=== PATIENT | male | born 1970 | race Two or more races ===

== ENCOUNTER 2016-12-26 07:07 | Emergency (ER) | payer MEDICAID ==
[~2016-12-26 07:07] MED LIST: ELA10 PO; INSULIN SQ; LAC PO; LEVAQUIN750 MG PO; LEVEMIR100 U/M1 SC; NOR10T PO; NOVI SQ; PEP20 PO; ZES10 PO
[2016-12-26 08:02] LABS: microscopic required? NO
[2016-12-26 08:13] LABS: BASOPHIL % 0.2 % (0-2); PLATELET COUNT 194 x10^3mcL (130-400); RED CELL DISTRIBUTION WIDTH 11.9 % (11.5-14.5)
[2016-12-26 08:15] LABS: urine erythrocyte NEGATIVE (NEGATIVE)
[2016-12-26 08:19] LABS: CALCIUM 8.8 mg/dL (8.5-10.1); CARBON DIOXIDE 25.7 mmol/L (21-32); CHLORIDE SERUM 99 mmol/L (98-107); CREATININE SERUM 0.9 mg/dL (0.7-1.3); GFR1 > 60 mL/min; GLUCOSE SERUM 328 mg/dL (74-106); SODIUM SERUM 139 mmol/L (136-145)
[2016-12-26 08:22] LABS: ALBUMIN 4.3 g/dL (3.4-5.0); ALKALINE PHOSPHATASE 120 U/L (46-116); ALT/SGPT 31 U/L (16-63); AST/SGOT 19 U/L (15-37); BILIRUBIN TOTAL 1.1 mg/dL (0.20-1.00); LIPASE 80 IU/L (73-393); MAGNESIUM 2.2 mg/dL (1.8-2.4); TOTAL PROTEIN, SERUM 7.4 g/dL (6.4-8.2)
[2016-12-26 10:40] VITALS: BP 130/80
== END 2016-12-26 10:40 | disposition home or self-care (01) ==
LOC: ED 07:07
PROVIDERS: Emergency Medicine
DX: K29.70 Gastritis, unspecified, without bleeding (principal); R11.2 Nausea with vomiting, unspecified; R53.1 Weakness; E11.65 Type 2 diabetes mellitus with hyperglycemia; E78.5 Hyperlipidemia, unspecified; Z79.4 Long term (current) use of insulin
CPT/HCPCS: 82962; 83880; J1815; J2270; J2405; J3490; J7030; Q0092

== ENCOUNTER 2017-02-22 13:38 | Emergency (ER) | payer MEDICAID ==
[~2017-02-22] VITALS: Ht 167.6 cm; Wt 65.8 kg
[2017-02-22 14:26] LABS: CARBON DIOXIDE 32.2 mmol/L (21-32); CHLORIDE SERUM 97 mmol/L (98-107); CREATININE SERUM 0.9 mg/dL (0.7-1.3); GFR1 > 60 mL/min; GLUCOSE SERUM 199 mg/dL (74-106); SODIUM SERUM 134 mmol/L (136-145)
[2017-02-22 14:32] LABS: ALKALINE PHOSPHATASE 93 U/L (46-116); ALT/SGPT 20 U/L (16-63); AMYLASE 28 U/L (25-115); AST/SGOT 10 U/L (15-37); BILIRUBIN TOTAL 1.2 mg/dL (0.20-1.00); LIPASE 129 IU/L (73-393)
[2017-02-22 14:45] LABS: BASOPHIL % 0.3 % (0-2); PLATELET COUNT 248 x10^3mcL (130-400); RED CELL DISTRIBUTION WIDTH 13.6 % (11.5-14.5)
[2017-02-22 15:53] VITALS: BP 125/77
== END 2017-02-22 15:53 | disposition home or self-care (01) ==
LOC: ED 13:38
PROVIDERS: Emergency Medicine
DX: R10.13 Epigastric pain (principal); E11.9 Type 2 diabetes mellitus without complications; Z79.4 Long term (current) use of insulin
CPT/HCPCS: 83880; J2765; J7030

== ENCOUNTER 2017-03-05 09:07 | Inpatient (IN) | payer MEDICAID ==
[~2017-03-05] VITALS: Ht 170.2 cm; Wt 65.0 kg
--- NOTE | 2017-03-05 09:29 | NUR ---
PT C/O EPIGASTRIC PAIN AND VOMITING X 4-6 WKS. PT IS AAOX4, RESP EVEN AND UNLABORED, RA. DENIES SOB, CEHST PAIN, GI BLEED, DIARRHEA, OR UTI SYMPTOMS. PT GRIMACES WITBN PALPATION TO EPIGASTRIC AREA. PT REPORTS EXPERIENCING SIMILAR SYMPTOMS IN PAST.
--- NOTE | 2017-03-05 09:31 | NUR ---
DR BOSCH AT BEDSIDE FOR MSE
--- NOTE | 2017-03-05 09:40 | NUR ---
LAB AT BEDSIDE FOR MSE
[2017-03-05 09:48] LABS: microscopic required? NO
--- NOTE | 2017-03-05 09:48 | NUR ---
RADIOLOGY AT BEDSIDE FOR PCXR
--- NOTE | 2017-03-05 09:55 | NUR ---
EMT AT BEDSIDE FOR EKG
[2017-03-05 09:56] LABS: BASOPHIL % 0.3 % (0-2); PLATELET COUNT 196 x10^3mcL (130-400); RED CELL DISTRIBUTION WIDTH 12.9 % (11.5-14.5)
[2017-03-05 10:09] LABS: CALCIUM 8.8 mg/dL (8.5-10.1); CARBON DIOXIDE 28.2 mmol/L (21-32); CHLORIDE SERUM 94 mmol/L (98-107); GFR1 > 60 mL/min; GLUCOSE SERUM 356 mg/dL (74-106); POTASSIUM SERUM 4.2 mmol/L (3.5-5.1); SODIUM SERUM 130 mmol/L (136-145)
[2017-03-05 10:15] LABS: urine erythrocyte NEGATIVE (NEGATIVE)
[2017-03-05 10:15] LABS: ALBUMIN 3.9 g/dL (3.4-5.0); ALKALINE PHOSPHATASE 82 U/L (46-116); ALT/SGPT 22 U/L (16-63); AST/SGOT 12 U/L (15-37); BILIRUBIN TOTAL 2.3 mg/dL (0.20-1.00); CHOLESTEROL 183 mg/dL (<200); LIPASE 117 IU/L (73-393); TRIGLYCERIDES 89 mg/dL (<150)
[2017-03-05 10:18] LABS: CHOLESTEROL/HDL RATIO 2.3; HDL CHOLESTEROL 78 mg/dL (40-60)
[2017-03-05 10:23] LABS: T3 TOTAL 0.69 ng/mL
[2017-03-05 10:35] LABS: AMPHETAMINE QUAL UR NONE DETECTED (NEG <=1000)
--- NOTE | 2017-03-05 10:36 | NUR ---
PT REPORTS INCREASED PAIN AND NO RELIEF FROM GI COCKTAIL. VS STABLE. RESP EVEN AND UNLABORED, RA. DR BOSCH MADE AWARE OF PT PAIN
[2017-03-05 10:57] LABS: FREE THYROXINE INDEX 4.2 ug/dL (1.4-4.5); T4(THYROXINE) 10.2 ug/dL (4.7-13.3)
--- NOTE | 2017-03-05 11:00 | NUR ---
PT STS THAT HE WILL HAVE A RIDE HOME. DR BOSCH MADE AWARE
[2017-03-05 11:02] LABS: FREE T4 1.38 ng/dL (0.76-1.46)
--- NOTE | 2017-03-05 11:05 | NUR ---
[facility]
--- NOTE | 2017-03-05 11:41 | NUR ---
PT IN STABLE CONDITION. PT REPORTS BEING CONSTIPATED SINCE 03/01/17. DR BOSCH MADE AWARE
--- NOTE | 2017-03-05 12:24 | NUR ---
PT IN STABLE CONDITION WITH STABLE VS. PT REPORTS DECREASE IN PAIN NOW 01/10
--- NOTE | 2017-03-05 12:28 | NUR ---
DR BOSCH AT BEDSIDE DISCUSSING ADMISSION, PT AGREEABLE TO POC
--- NOTE | 2017-03-05 13:01 | NUR ---
LAB AT BEDSIDE FOR BLOOD DRAW
--- NOTE | 2017-03-05 13:08 | NUR ---
CALLED TO GIVE REPORT, JOSEP REED REQUESTING 10MIN TO CALL BACK. PT ALSO AWAITING VERBAL OK FROM DR BOSCH TO MOVE TO [facility]
[2017-03-05 13:22] LABS: MAGNESIUM 2.1 mg/dL (1.8-2.4); PHOSPHOROUS 4.4 mg/dL (2.5-4.9)
--- NOTE | 2017-03-05 13:35 | NUR ---
BEDSIDE REPORT GIVEN TO JOSEP.
[2017-03-05 13:56] VITALS: BP 136/85
--- NOTE | 2017-03-05 14:01 | NUR ---
[facility] ORIENTED PT TO ROOM AND SURROUNDINGS. IV NOTED TO LAC PATENT AND INTACT. TELE 27 PLACED ON PT READING NSR. INSTRUCTED PT ON THE USE OF CALL LIGHT FOR ASSISTANCE. ENDOSRED PT TO PRIMARY NURSE JOSEP
[2017-03-05 17:05] VITALS: BP 163/90
--- NOTE | 2017-03-05 18:53 | NUR ---
PT RESTING IN BED NO SIGNS OF DISTRESS, CALL LIGHT IN REACH. PT COUGHING DENIES SOB.
--- NOTE | 2017-03-05 19:10 | NUR ---
AAOX4. MARTINIQUAIS SPEAKING. TELE #27, NSR. LUNG SOUNDS CLEAR AND UNLABORED, ON RA. RADIAL AND PEDAL PULSES PALPABLE, NO EDEMA. BOWEL SOUNDS ACTIVE X 4 QUADRANTS, C/O EPIGASTRIC PAIN 9/10 BUT DOES NOT WANT MEDICATION AT THIS TIME. VOIDS WITHOUT DIFFICULTY. HEALED WOUNDS/SCAR TISSUE TO BLE. NS INFUSING @ 100 TO LEFT AC, NO REDNESS OR SWELLING. BED IN LOW POSITION, CALL LIGHT IN REACH. INSTRUCTED TO CALL FOR ASSISTANCE.
[2017-03-05 21:36] VITALS: BP 122/81
--- NOTE | 2017-03-06 00:34 | NUR ---
RESTING IN BED WITH EYES CLOSED, AWAKENS EASILY TO VERBAL STIMULI. BREATHING EVEN AND UNLABORED. NO ACUTE DISTRESS NOTED. NPO SINCE MIDNIGHT FOR ABD US THIS MORNING. WILL CONTINUE TO MONITOR.
[2017-03-06 05:16] VITALS: BP 133/95
--- NOTE | 2017-03-06 06:08 | NUR ---
AAOX4. CURRENTLY UNDERGOING BEDSIDE ABD US. NO ACUTE DISTRESS NOTED. NO ACUTE CHANGES DURING SHIFT. WILL ENDORSE TO ONCOMING RN.
[2017-03-06 07:20] LABS: BASOPHIL % 0.5 % (0-2); PLATELET COUNT 164 x10^3mcL (130-400); RED CELL DISTRIBUTION WIDTH 13.5 % (11.5-14.5)
--- NOTE | 2017-03-06 07:30 | NUR ---
RECEIVED THE PATIENT AWAKE AND ORIENTED TO PERSON, PLACE AND TIME. DENIED NAUSEA/VOMITING AT THIS TIME. PATIENT STATED HAVING EPISODES OF ABD. PAIN; THE PAIN WAS TOLERABLE AT THIS TIME. CONTINUE TO MONITOR AND MEDICATE FOR PAIN PRN. IVF NS VIA H/L TO LAC. TELE # 27 READS SINUS RHYTHMS. CALL LIGHT WITHIN REACH. SIDE RAILS UP X2.
[2017-03-06 07:36] LABS: CALCIUM 8.4 mg/dL (8.5-10.1); CARBON DIOXIDE 24.5 mmol/L (21-32); CHLORIDE SERUM 96 mmol/L (98-107); CREATININE SERUM 0.8 mg/dL (0.7-1.3); GFR1 > 60 mL/min; GLUCOSE SERUM 188 mg/dL (74-106); MAGNESIUM 2.2 mg/dL (1.8-2.4); PHOSPHOROUS 4.2 mg/dL (2.5-4.9); POTASSIUM SERUM 3.7 mmol/L (3.5-5.1); SODIUM SERUM 132 mmol/L (136-145)
--- NOTE | 2017-03-06 08:25 | NUR ---
DR. HENDERSON AND THE TEAM WERE MAKING ROUND TO SEE THE PATIENT. THE CARE PLAN WAS EXPLAINED TO THE PATIENT IN [facility] VIA ONE OF THE RESIDENT SPECIAL EDUCATION [employer] TEACHER.
--- NOTE | 2017-03-06 08:45 | NUR ---
DR. FREEMAN-RESIDENT WAS INFORMED THAT PER PHARMICIST, ERYC SHOULD BE ADMINISTERED WITH FOOD. DR. FREEMAN SAID, "IT IS OK TO GIVE IT TO THE PATIENT WITHOUT OUT FOOD."
[2017-03-06 09:53] VITALS: BP 153/97
[2017-03-06 13:44] VITALS: BP 132/83
--- NOTE | 2017-03-06 15:43 | NUR ---
THE URINE SAMPLE WAS COLLECTED AND SENT TO THE LAB FOR URINE LYTE AND OSMOLALITY PER DR. WESTFALL'S ORDER.
[2017-03-06 18:14] VITALS: BP 157/107
[2017-03-06 18:33] VITALS: BP 156/98
--- NOTE | 2017-03-06 18:37 | NUR ---
DR. CANNON IN TO SEE THE PATIENT.
--- NOTE | 2017-03-06 19:19 | NUR ---
DR. FREEMAN-RESIDENT ORDERED GI COCKTAIL FOR ABD. PAIN; THE MED WAS ADMISTERED TO THE PATIENT. WILL ENDORSE TO RELIEF NOCS TO F/U AND REASSESS THE PAIN.
--- NOTE | 2017-03-06 19:27 | NUR ---
SHIFT REASSESSMENT DONE.PATIENT ALERT AND ORIENTED.MAKE NEEDS KNOWN.JUST HAD GI COCKTAIL.D5NS AT 100 CC/ HOUR,NEW BAG,NEW ORDER.TELE 27 SR.NPO,HAS HEALED WOUNDS BLE.SCD ORDERED.CALL LIGHT IN REACH.
[2017-03-06 20:49] VITALS: BP 129/82
--- NOTE | 2017-03-06 21:09 | NUR ---
PM MEDS GIVEN,SWALLOWS WELL.SICK TO HIS STOMACH,CAME IN WITH ABD PROBLEM,GIVEN ZOFRAN IVP,ALSO PEPTOBISMOL.IVF D5 NS AT 100 CC/ HOUR.
[2017-03-07] VITALS (7 sets, daily range): BP systolic 127–158; BP diastolic 83–106; Ht 170.2 cm; Wt 65.0 kg
--- NOTE | 2017-03-07 05:54 | NUR ---
PATIENT SLEEPING ON AND OFF AT NIGHT.VOIDING WELL IN RESTROOM.IVF ORDERED.IV SITE L AC INTACT.WILL ENDORSE TO NEXT SHIFT.CALL LITE IN REACH.
[2017-03-07 06:09] LABS: BASOPHIL % 0.7 % (0-2); PLATELET COUNT 168 x10^3mcL (130-400); RED CELL DISTRIBUTION WIDTH 13.1 % (11.5-14.5)
[2017-03-07 06:23] LABS: CALCIUM 8.1 mg/dL (8.5-10.1); CHLORIDE SERUM 98 mmol/L (98-107); CREATININE SERUM 0.7 mg/dL (0.7-1.3); GFR1 > 60 mL/min; GLUCOSE SERUM 220 mg/dL (74-106); MAGNESIUM 2.1 mg/dL (1.8-2.4); PHOSPHOROUS 4.4 mg/dL (2.5-4.9); POTASSIUM SERUM 3.5 mmol/L (3.5-5.1); SODIUM SERUM 132 mmol/L (136-145)
--- NOTE | 2017-03-07 07:30 | NUR ---
RECEIVED PT. IN BED A/A/O X3. NO SOB, NO N/V NOTED. DENIES ANY PAIN AT THIS TIME. D5NS RUNNING AT 100 CC/HR. VIA IV H/L AT L AC. SCD TO BLE MAINTAINED. BED IN LOW POS., CALL LIGHT WITHIN REACH. SIDE RAILS UP X3.
--- NOTE | 2017-03-07 09:21 | NUR ---
DR. SLAUGHTER, THE RESIDENTS, CHARGE NURSE, AND ATTENDING NURSE AT BEDSIDE. CAREPLAN DISCUSSED WITH PT. ALL QUESTIONS ANSWERED.
--- NOTE | 2017-03-07 16:41 | NUR ---
REMAINS IN STABLE CONDITION AT THIS TIME. NO ACUTE DISTRESS NOTED.
--- NOTE | 2017-03-07 19:30 | NUR ---
RECEIVED PT IN BED AWAKE, ALERT,ORIENTED X4. NO SOB ON RA. BOWEL SOUNDS ACTIVE. PT HAS NO C/O PAIN AT THIS TIME. NO C/O N/V. W/ IVF NS AT 100 CC/HR INFUSING VIA LTAC. CALL LIGHT W/IN REACH.
--- NOTE | 2017-03-08 01:37 | NUR ---
PT SLEEPING COMFORTABLY AT THIS TIME, NO SIGNS OF DISTRESS
[2017-03-08 05:10] VITALS: BP 155/92
--- NOTE | 2017-03-08 05:29 | NUR ---
PT SLEPT FAIRLY. HE WAS MEDICATED FOR PAIN X2 W/ MINIMAL TO MOD. RELIEF. HE VOIDED FREELY W/O DIFFICULTY. IVF NS AT 100 CC/HR INFUSING WELL VIA RTAC.
--- NOTE | 2017-03-08 06:17 | NUR ---
PT C/O ABDL PAIN 02/09. NORCO 5/325 MG PO GIVEN.
[2017-03-08 06:46] LABS: PLATELET COUNT 155 x10^3mcL (130-400); RED CELL DISTRIBUTION WIDTH 13.4 % (11.5-14.5)
[2017-03-08 06:57] LABS: CALCIUM 8.2 mg/dL (8.5-10.1); CARBON DIOXIDE 25.3 mmol/L (21-32); CHLORIDE SERUM 96 mmol/L (98-107); CREATININE SERUM 0.7 mg/dL (0.7-1.3); GFR1 > 60 mL/min; GLUCOSE SERUM 268 mg/dL (74-106); MAGNESIUM 2.1 mg/dL (1.8-2.4); POTASSIUM SERUM 3.6 mmol/L (3.5-5.1); SODIUM SERUM 131 mmol/L (136-145)
--- NOTE | 2017-03-08 07:00 | NUR ---
PT VERBALIZED MINIMAL RELIEF OF PAIN FROM NORCO. WILL ENDORSE TO AM NURSE.
--- NOTE | 2017-03-08 07:15 | NUR ---
PT APPEARS TO BE SLEEPING MORE COMFORTABLY AFTER TAKING NORCO.
--- NOTE | 2017-03-08 07:15 | NUR ---
RECEIVED PT. IN BED A/A/O X3. NO SOB, NO N/V NOTED. PT. STILL C/O ON AND OFF PAIN TO HIS ABDOMEN. D5NS RUNNING AT 100 CC/HR. VIA IV H/L AT L AC. SCD TO BLE MAINTAINED. BED IN LOW POS., CALL LIGHT WITHIN REACH. SIDE RAILS UP X3.
[2017-03-08 07:55] VITALS: BP 123/88
[2017-03-08 09:44] LABS: BAND NEUTROPHIL 0 % (0-10); BASOPHIL 0 % (0-2); MONOCYTE 10 % (0-7); PLATELET MORPHOLOGY PLATELETS NORMAL; SEGMENTED NEUTROPHILS 64 % (37-75)
--- NOTE | 2017-03-08 10:12 | NUR ---
DR. SLAUGHTER, THE RESIDENTS, CHARGE NURSE, AND ATTENDING NURSE AT BEDSIDE. CAREPLAN DISCUSSED WITH PT. ALL QUESTIONS ANSWERED.
[2017-03-08 13:00] VITALS: BP 189/111
--- NOTE | 2017-03-08 13:30 | NUR ---
B/P= 181/109. NTG 0.4MG SL GIVEN. DR. KAUR WAS NOTIFIED OF THE ABOVE B/P. NO FURTHER ORDER RECEIVED FROM DR. KAUR.
[2017-03-08 14:08] VITALS: BP 120/75
--- NOTE | 2017-03-08 14:08 | NUR ---
B/P RECHECKED; B/P= 120/75, P= 84.
[2017-03-08 16:45] VITALS: BP 134/94
--- NOTE | 2017-03-08 18:04 | NUR ---
REMAINS IN STABLE CONDITION AT THIS TIME. NO ACUTE DISTRESS NOTED. DR. KAUR WAS MADE AWARE THAT PT. REQUESTED FOR PAIN MEDICATION EVERY 2 TO 3 HOURS AND THAT PT. IS ONLY ON TORADOL 30MG IV Q 8 HRS. PRN. NO FURTHER ORDER RECEIVED.
--- NOTE | 2017-03-08 19:20 | NUR ---
RECEIVED PT IN BED AWAKE, ALERT,ORIENTED X4. NO SOB ON RA. BOWEL SOUNDS ACTIVE. PT STATED ABDL PAIN IS MOD . BUT TOLERABLE AT THIS TIME. NO C/O N/V AT THIS TIME. W/ IVF D5NS AT 100 CC/HR VIA LTAC. CALL LIGHT W/IN REACH.
--- NOTE | 2017-03-08 19:25 | NUR ---
PT SEEN BY DR. Shayla SAMAYOA.
--- NOTE | 2017-03-08 21:07 | NUR ---
PT MEDICATED W/ TORADOL 30 MG IV FOR C/O ABDL PAIN 05/12. PT POINTING TO HIS EPIGASTRIC AREA. MEDS FOR BOWEL PREP ALSO GIVEN .
[2017-03-08 21:12] VITALS: BP 159/95
[2017-03-09] VITALS (7 sets, daily range): BP systolic 108–177; BP diastolic 74–108
--- NOTE | 2017-03-09 04:05 | NUR ---
PT C/O EPIGASTRIC PAIN 05/12. TORADOL 30 MG IV GIVEN. BOWEL PREP IN PORGRESS.
--- NOTE | 2017-03-09 05:08 | NUR ---
PT RESTING IN BED. HE CONTINUES TO C/O EPIGASTRIC PAIN AND WAS MEDICATED X2 W/ MINIMAL RELIEF. HE HAD NO EPISODE OF N/V. PT ON BOWEL PREP FOR EGD AND COLONOS COPY TODAY. PT'S STOOL WATERY AND ALMOST CLEAR AT THIS TIME. W/ IVF D5NS AT 100 CC/HR VIA LTAC.
--- NOTE | 2017-03-09 06:11 | NUR ---
PT MEDICATED W/ NITRO 0.4 SL FOR BM=433/106 HR=81. WILL CONTINUE TO MONITOR.
[2017-03-09 06:13] LABS: PLATELET COUNT 184 x10^3mcL (130-400); RED CELL DISTRIBUTION WIDTH 13.2 % (11.5-14.5)
[2017-03-09 06:22] LABS: CALCIUM 8.4 mg/dL (8.5-10.1); CARBON DIOXIDE 23.2 mmol/L (21-32); CHLORIDE SERUM 99 mmol/L (98-107); CREATININE SERUM 0.7 mg/dL (0.7-1.3); GFR1 > 60 mL/min; GLUCOSE SERUM 246 mg/dL (74-106); POTASSIUM SERUM 3.3 mmol/L (3.5-5.1); SODIUM SERUM 134 mmol/L (136-145)
--- NOTE | 2017-03-09 06:55 | NUR ---
BP MBKYSCATR=083/86 HR=85 AFTER NITRO SL WAS GIVEN. PT RESTING QUIETL;Y IN BED.
--- NOTE | 2017-03-09 07:51 | NUR ---
RECEIVED PT LAYING IN BED ASLEEP, NO APPARENT SIGNS OF ACUTE DISTRESS NOTED AT THIS TIME, RESPIRATIONS EVEN AND UNLABORED. IV TO THE LAC APPEARS PATENT AND INFUSING WELL. RECEIVED CALL FROM GI LAB AND GAVE REPORT. PT IS NOW SALINE LOCKED. VSS. CONSNT SIGNED AND CHECKLIST COMPLETE. CALL LIGHT WITHIN REACH. WILL CONTINUE TO MONITOR
--- NOTE | 2017-03-09 08:30 | NUR ---
PT WAS NOT PRESENT DURING ROUNDS. HAD ALREADY LEFT FOR EGD/COLONOSCOPY
--- NOTE | 2017-03-09 09:32 | NUR ---
PT RETURNED FROM EGD AND COLONOSCOPY. RESTING IN BED AT THIS TIME. DENIES PAIN OR DISCOMFORT. CALL LIGHT WITHIN REACH. WILL CONTIUE TO MONITOR
[2017-03-09 11:53] LABS: BAND NEUTROPHIL 0 % (0-10); MONOCYTE 2 % (0-7); SEGMENTED NEUTROPHILS 68 % (37-75)
[2017-03-09 11:54] LABS: PLATELET MORPHOLOGY PLATELETS DECREASED; rbc morphology (normal/abnorm) NORMAL (NORMAL)
--- NOTE | 2017-03-09 13:04 | NUR ---
PT C/O ABDOMINAL PAIN 02/09. ENCOURAGED TO REPOSITION FOR COMFORT AND TO TAKE DEEP BREATH. GIVEN TORADOL IVP PRN. CALL LIGHT WITHIN REACH. FAMILY AT BEDSIDE. BED IN LOWEST POSITION. WILL CONTINUE TO MONITOR
--- NOTE | 2017-03-09 14:22 | NUR ---
PT RESTING IN BED WITH EYES CLOSED. NO APPARENT SIGNS OF ACUTE DISTRESS NOTED AT THIS TIME. CALL LIGHT WITHIN REACH. WILL CONTINUE TO MONITOR
--- NOTE | 2017-03-09 14:25 | NUR ---
SPOKE TO DR. CHÁVEZ. STATED THAT SHE PUT OUT A CALL TO DR. SANDHU IN REGARDS TO THE SODIUM BICARB AND POTASSIUM ORDER. STATED THAT SHE STILL HASNT HEARD BACK FROM HER, AND TO HOLD OFF ON ADMINISTERING DOSE AT THIS TIME. WILL CONTINUE TO MONITOR
--- NOTE | 2017-03-09 17:09 | NUR ---
PT STATES HE IS IN PAIN 01/10. SPOKE TO DR. PRAJAPATI WHO IS COVERING FOR DR. FREEMAN, IN REGARDS TO HIS MED ORDERS. TORADOL IS THE ONLY MEDICATION AVAILABLE FOR MOD TO SEVERE PAIN AND IS ONLY AVAILABLE EVERY [address] PRAJAPATI STATED HE WOULD ASSESS PT AND LOOK INTO THE ISSUE. WILL CONTINUE TO MONITOR
--- NOTE | 2017-03-09 18:00 | NUR ---
PT RESTING IN BED. DR. PRAJAPATI ASSESSED PT. PT STATED THAT HIS PAIN FEELS MORE LIKE ACID REFLUX OPPOSE TO PAIN. DR. PRAJAPATI PUT IN ORDER FOR PROTONIX PACK, ALONG WITH NS AND K RIDER. SINCE K IS 3.3, REQUESTED PHARMACY TO CHANGE TO KLOR TAB. CALL LIGHT WITHIN REACH. WILL CONTINUE TO MONITOR
--- NOTE | 2017-03-09 18:45 | NUR ---
PT C/O NAUSEA. WAS GIVEN ZOFRAN IVP PRN. WILL ENDORSE CARE TO ONCOMING NURSE
--- NOTE | 2017-03-09 20:00 | NUR ---
PT SEEN, AMBULATES IN THE HALLWAY, ALERT AND ORIENTED, DENIES HEADACHE OR DIZZINESS, PALESTINIAN SPEAKING ONLY, BREATHING EVEN AND UNLABORED, NO SOB, LUNG SOUNDS CLEAR, ON ROOM AIR WITH NO RESP DISTRESS NOTED, IVF INFUSING WELL, PULSES PALPABLE, NO EDEMA NOTED, C/O OF NAUSEOUS AT TIMES, ABD SOFT AND FLAT WITH ACTIVE BS, NO BM AT THIS TIME, DENIES ABD PAIN BUT C/O OF HEARBURN AND GAS, PEPTO-BISMOL 15ML AND GI COCKTAIL PO GIVEN, VOIDING FREELY, DRY SCABS TO LLE, NO DISTRESS NOTED, WILL KEEP TO MONITOR.
--- NOTE | 2017-03-10 05:42 | NUR ---
PT ASLEEP BUT EASILY AROUSABLE, SLEPT ON AND OFF WHOLE NIGHT DUE TO ABD PAIN AND HEARTBURN, GI COCKTAIL AND TORADOL GIVEN WITH MOD RELIEF, MORNING BLOOD SUGAR-191 MG/DL WITH RISS 3 UNITS, NO DISTRESS NOTED, WILL KEEP TO MONITOR.
[2017-03-10 06:33] VITALS: BP 125/86
[2017-03-10 06:34] LABS: BASOPHIL % 0.4 % (0-2); PLATELET COUNT 179 x10^3mcL (130-400); RED CELL DISTRIBUTION WIDTH 13.2 % (11.5-14.5)
[2017-03-10 06:45] LABS: CALCIUM 8.5 mg/dL (8.5-10.1); CARBON DIOXIDE 28.1 mmol/L (21-32); CHLORIDE SERUM 99 mmol/L (98-107); CREATININE SERUM 0.7 mg/dL (0.7-1.3); GFR1 > 60 mL/min; GLUCOSE SERUM 175 mg/dL (74-106); MAGNESIUM 2.1 mg/dL (1.8-2.4); PHOSPHOROUS 4.6 mg/dL (2.5-4.9); POTASSIUM SERUM 3.3 mmol/L (3.5-5.1); SODIUM SERUM 133 mmol/L (136-145)
--- NOTE | 2017-03-10 07:32 | NUR ---
PT RECEIVED DURING CHANGE OF SHIFT, ASLEEP BUT AROUSABLE, NO TELE, PULSES PRESENT, NO EDEMA NOTED, SCD'S IN PLACE, LUNGS CTA ON RA, BREATHING EVEN AND UNLABORED, BOWEL SOUNDS ACTIVE, LBM 03/09/17, ABLE TO VOID, AMBULATORY, BRP, HEALED SCABS TO LLE, NO INDICATION OF PAIN AT THIS TIME, IV TO LAC INFUSING NS AT 20 ML/HR, CALL LIGHT WITHIN REACH, WILL CONTINUE TO MONITOR.
--- NOTE | 2017-03-10 08:30 | NUR ---
DR. CASTRO AND RESIDENTS MAKING ROUNDS, PLAN OF CARE DISCUSSED, STEROID FOR ANTI-INFLAMMATORY USE EXPLAINED, POSSIBLE USE OF CARAFATE DISCUSSED.
--- NOTE | 2017-03-10 09:04 | NUR ---
PT ASLEEP, NO INDICATION OF PAIN, BREATHING EVEN AND UNLABORED, CALL LIGHT WITHIN REACH WILL CONTINUE TO MONITOR.
[2017-03-10 10:01] VITALS: BP 108/74
--- NOTE | 2017-03-10 10:13 | NUR ---
PT ASLEEP, NO INDICATION OF PAIN, BREATHING EVEN AND UNLABORED, CALL LIGHT WITHIN REACH, WILL CONTINUE TO MONITOR.
--- NOTE | 2017-03-10 11:10 | NUR ---
PT ASLEEP BUT AROUSABLE, DENIES SOB, DENIES PAIN, STATES MEDICATION HELPED, CALL LIGHT WITHIN REACH, WILL CONTINUE TO MONITOR.
--- NOTE | 2017-03-10 12:15 | NUR ---
PT ASLEEP BUT AROUSABLE, BREATHING EVEN AND UNLABORED, NO INDICATION OF PAIN, CALL LIGHT WITHIN REACH, WILL CONTINUE TO MONITOR.
--- NOTE | 2017-03-10 13:07 | NUR ---
PT DENIES SOB, DIET CHANGED, FNS CONTACTED, FNS STATED TRAY WILL BE BROUGHT UP TO PT WHEN READY, WILL ASSESS TOLERANCE TO DIET, CALL LIGHT WITHIN REACH, WILL CONTINUE TO MONITOR.
--- NOTE | 2017-03-10 14:05 | NUR ---
PT DENIES SOB, DENIES PAIN, STATES HE IS TOLERATING LIQUID DIET, DENIES N/V AT THIS TIME, FAMILY AT BEDSIDE, CALL LIGHT WITHIN REACH, WILL CONTINUE TO MONITOR.
--- NOTE | 2017-03-10 15:05 | NUR ---
PT ASLEEP, NO INDICATION OF PAIN, BREATHING EVEN AND UNLABORED, CALL LIGHT WITHIN REACH, WILL CONTINUE TO MONITOR.
--- NOTE | 2017-03-10 16:14 | NUR ---
DR. FREEMAN SPOKE WITH PT, SPOKE OF DISCHARGE PLANNING, INFORMED PT THAT CURRENT CONDITION CAN BE MANAGED AT HOME WITH MEDICATIONS AND WOULD BE PRESCRIBED THOSE MEDICATIONS, DR. FREEMAN ALSO INFORMED PT THAT IN 1-2 DAYS HE WOULD FEEL BETTER FROM THE EFFECTS OF THE MEDICATION.
[2017-03-10] MEDS ORDERED: GOOD SENSE OMEP20 MG PO (16:42)
[2017-03-10] MEDS ORDERED: ZOF4 PO (16:43)
[2017-03-10] MEDS ORDERED: CARAFATE1 GM PO (16:45)
[2017-03-10] MEDS ORDERED: ELA10 PO (16:59)
[2017-03-10] MEDS ORDERED: AMITIZA24 MC1 PO (16:59)
[2017-03-10] MEDS ORDERED: PREDNISONE20 MG PO (17:01)
--- NOTE | 2017-03-10 17:04 | NUR ---
IMMIGRATION ATTORNEY AT BEDSIDE TAKING VITALS, DENIES SOB, MEDICATED FOR PAIN 04/12, CALL LIGHT WITHIN REACH, WILL CONTINUE TO MONITOR.
[2017-03-10 17:40] VITALS: BP 144/94
--- NOTE | 2017-03-10 18:19 | NUR ---
PT DENIES SOB, STATES ABD PAIN IS TOLERABLE, CALL LIGHT WITHIN REACH, WILL CONTINUE TO MONITOR.
--- NOTE | 2017-03-10 18:52 | NUR ---
PT RECEIVED DISCHARGE INSTRUCTIONS AND EDUCATION, VERBALIZED UNDERSTANDING, ALL QUESTIONS ANSWERED, E-SCRIPTS EXPLAINED, PT STATES HE IS WAITING ON A RIDE, PT INFORMED TO NOTIFY STAFF WHEN READY TO BE ESCORTED DOWNSTAIRS.
--- NOTE | 2017-03-10 19:29 | NUR ---
IV DC'D CATHETER INTACT, ARMBAND DC'D, NO TELE, ESCORTED DOWNSTAIRS TO PRIVATE AUTO BY PRIMARY RN.
== END 2017-03-10 19:20 | disposition home or self-care (01) | DRG 48 ==
LOC: ED 09:07 → DU 12:43 → MU 12:43 → DU 13:40 → MU 03-09 09:54
PROVIDERS: Internal Medicine Gastroenterology; Specialist; Student in an Organized Health Care Education/Training Program; ADMIT Family Medicine
PROC: 0DB68ZX Excision of Stomach, Via Natural or Artificial Opening Endoscopic, Diagnostic (ICD-10-PCS; principal; 2017-03-09 14:00)
PROC: 0DBP8ZX Excision of Rectum, Via Natural or Artificial Opening Endoscopic, Diagnostic (ICD-10-PCS; 2017-03-09 14:00)
DX: E11.43 Type 2 diabetes mellitus with diabetic autonomic (poly)neuropathy (principal); N17.0 Acute kidney failure with tubular necrosis; D68.69 Other thrombophilia; E11.65 Type 2 diabetes mellitus with hyperglycemia; E11.59 Type 2 diabetes mellitus with other circulatory complications; E87.1 Hypo-osmolality and hyponatremia; K31.84 Gastroparesis; K21.0 Gastro-esophageal reflux disease with esophagitis; K29.70 Gastritis, unspecified, without bleeding; K62.89 Other specified diseases of anus and rectum; I16.0 Hypertensive urgency; E03.9 Hypothyroidism, unspecified; Z68.22 Body mass index [BMI] 22.0-22.9, adult; Z79.4 Long term (current) use of insulin
CPT/HCPCS: 43235; 45378; 82962; 83880; 84153; 84439; J1170; J1200; J1610; J1815; J1885; J2250; J2270; J2310; J2405; J2765; J2920; J3010; J3490; J7030; J7042; J8597; Q0092; Q9967